=== PATIENT | male | born 1990 | race Hispanic/Latino ===

== ENCOUNTER 2019-04-12 19:38 | Emergency (ER) | payer OTHER ==
[2019-04-12] MEDS ORDERED: LIDOCAINE HCL-MPF 1% 2ML VIAL ONE (20:15)
[2019-04-12] MEDS ORDERED: DEXAMETHASONE SOD PHOSPHATE 10MG/ML 1ML VIAL ONE (20:15)
[2019-04-12] MEDS ORDERED: CEFTRIAXONE SODIUM 1 GM ONE (20:15)
== END 2019-04-12 22:45 | disposition home or self-care (01) ==
LOC: EDH 19:38
DX: J02.9 Acute pharyngitis, unspecified (principal); Z90.49 Acquired absence of other specified parts of digestive tract
CPT/HCPCS: 87804 ×2; 96372 ×2; 99284; J0696; J1100; J3490